=== PATIENT | male | born 1960 | race Asian ===

== ENCOUNTER → 2016-11-14 | Outpatient (CLI) | payer MEDICAID ==
[~2016-11-14] MED LIST: AMINOPHYLLINE 25 MG/ML, 10ML ONE; ASCO10007 PO; ASPI-515 PO; ATOR40TA78 PO; CLOP75TA PO; DEXA4TAB PO; DOCU100C8 PO; FURO20TA3 PO; GINK120C PO; GLIP10TA13 PO; METF10002 PO; METO25TA35 PO; OMEG1CAP23 PO; OXYC5CAP4 PO; POTA10TA11 PO; REGADENOSON 0.4 MG/5 ML SYRINGE ONE; TETR250C3 PO; [UNRECOGNIZED DRUG - CODE] TP
== END | disposition home or self-care (01) ==
LOC: CFH 07:59
PROVIDERS: ATTEND Internal Medicine Cardiovascular Disease
DX: I10 Essential (primary) hypertension (principal); I25.10 Atherosclerotic heart disease of native coronary artery without angina pectoris; R93.1 Abnormal findings on diagnostic imaging of heart and coronary circulation; Z95.1 Presence of aortocoronary bypass graft
CPT/HCPCS: 78452; 93017; A9502; J0280; J2785

== ENCOUNTER → 2016-12-06 | Outpatient (CLI) | payer MEDICAID ==
[~2016-12-06] MED LIST changes: -AMINOPHYLLINE 25 MG/ML, 10ML ONE; -REGADENOSON 0.4 MG/5 ML SYRINGE ONE
== END | disposition home or self-care (01) ==
LOC: CVU 12:17
PROVIDERS: ATTEND Internal Medicine Cardiovascular Disease
DX: I65.23 Occlusion and stenosis of bilateral carotid arteries (principal); I70.202 Unspecified atherosclerosis of native arteries of extremities, left leg; I10 Essential (primary) hypertension; Z87.891 Personal history of nicotine dependence; Z95.1 Presence of aortocoronary bypass graft
CPT/HCPCS: 93880; 93922; 93926

== ENCOUNTER 2016-12-26 11:49 | Day surgery (SDC) | payer MEDICAID ==
[2016-12-25 13:38] LABS: HEMATOCRIT 36.2 % (39.2-51.8); HEMOGLOBIN 12.3 g/dL (13.7-18.0); WHITE BLOOD COUNT 9.1 x10^3/uL (3.4-10)
[2016-12-25 13:50] LABS: BLOOD UREA NITROGEN 21 mg/dL (7-18)
[2016-12-25 13:55] LABS: ASPARTATE AMINO TRANSFERASE 24 U/L (15-37)
[~2016-12-26] VITALS: Ht 162.6 cm; Wt 58.0 kg
[~2016-12-26 11:49] MED LIST changes: +VISIPAQUE 270 MG/ML, 150ML BOTTLE ONE
[2016-12-26 12:18] VITALS: BP 117/64
[2016-12-26] MEDS ORDERED: SODIUM CHLORIDE 0.9% 1,000 ML IV SCH (12:20)
[2016-12-26] MEDS ORDERED: PROTAMINE SULFATE 10 MG/ML, 25ML ONE (13:41)
[2016-12-26] MEDS ORDERED: MIDAZOLAM 1 MG/ML, 5ML ONE (13:41)
[2016-12-26] MEDS ORDERED: FENTANYL PF 100 MCG/2ML ONE (13:42)
[2016-12-26] MEDS ORDERED: FLUMAZENIL 0.1 MG/1 ML, 5ML ONE (13:42)
[2016-12-26] MEDS ORDERED: HEPARIN 1,000 UNITS/ML, 10ML ONE (13:42)
[2016-12-26] MEDS ORDERED: NALOXONE 1 MG/ML, 2ML ONE (13:42)
[2016-12-26] MEDS ORDERED: LIDOCAINE 2%, 20ML ONE (13:43)
[2016-12-26] MEDS ORDERED: hydrALAzine 20 MG/ML, 1ML ONE (14:53)
== END 2016-12-26 17:45 | disposition home or self-care (01) ==
LOC: OUT 11:49
PROVIDERS: ATTEND Internal Medicine Cardiovascular Disease
DX: I70.212 Atherosclerosis of native arteries of extremities with intermittent claudication, left leg (principal); Z95.1 Presence of aortocoronary bypass graft; E11.9 Type 2 diabetes mellitus without complications; I10 Essential (primary) hypertension; E78.5 Hyperlipidemia, unspecified; I65.23 Occlusion and stenosis of bilateral carotid arteries
CPT/HCPCS: 36415; 37221; 37225; 71020; 75625; 75716; 80053; 85025; 85610; 85730; 99156; 99157; C1714; C1725; C1760; C1769; C1876; C1884; C1894; J0360; J1644; J2250; J3010; J3490; Q9966; J2720; J2310